=== PATIENT | female | born 1985 | race Two or more races ===

== ENCOUNTER 2023-08-03 03:51 | Emergency (ER) | payer MEDICAID ==
[2023-08-03 04:23] LABS: BASOPHILS # (AUTO) 0.1 10^3/uL (0.0-0.1); BASOPHILS % (AUTO) 0.5 %; EOSINOPHILS # (AUTO) 0.1 10^3/uL (0.0-0.7); EOSINOPHILS % (AUTO) 0.9 %; HCT - HEMATOCRIT 41.9 % (37.0-47.0); HGB - HEMOGLOBIN 13.8 g/dL (12.0-16.0); LYMPHOCYTES % (AUTO) 30.1 %; MEAN CORPUSCULAR HGB CONC 32.9 g/dL (32.0-36.0); MEAN PLATELET VOLUME 9.7 fL (7.9-10.8); MONOCYTES # (AUTO) 0.9 10^3/uL (0.0-1.0); MONOCYTES % (AUTO) 6.6 %; NEUTROPHILS # (AUTO) 8.2 10^3/uL (1.5-6.6); NEUTROPHILS % (AUTO) 61.1 %; PLT - PLATELET COUNT 332 10^3/uL (130-450); RED BLOOD COUNT 4.76 10^6/uL (4.20-5.40); RED CELL DISTRIBUTION WIDTH 14.3 % (12.0-15.0); WHITE BLOOD COUNT 13.4 x10^3/uL (4.8-10.8)
[2023-08-03 04:27] LABS: BILIRUBIN,URINE NEGATIVE (NEGATIVE); GLUCOSE, URINE (UA) NEGATIVE (NEGATIVE); KETONES,URINE (UA) NEGATIVE (NEGATIVE); LEUKOCYTE ESTERASE, URINE NEGATIVE (NEGATIVE); NITRITE,URINE NEGATIVE (NEGATIVE); OCCULT BLOOD,URINE TRACE-INTA (NEGATIVE); PH,URINE 6.5 PH (5.0-7.5); PROTEIN,URINE NEGATIVE (NEGATIVE); UROBILINOGEN,URINE 0.2 (NORMAL) E.U./dL (NORMAL)
[2023-08-03 04:34] LABS: CLARITY,URINE CLEAR (CLEAR)
[2023-08-03] MEDS ORDERED: KETOROLAC 15 MG/ML VIAL IVP STA ×2 (04:45→07:10)
[2023-08-03] MEDS ORDERED: SODIUM CHLORIDE 0.9% 1,000 ML IV STA ×2 (04:45→07:10)
[2023-08-03] MEDS ORDERED: ONDANSETRON 4 MG/2 ML VIAL IVP STA (04:46)
[2023-08-03] MEDS ORDERED: ONDANSETRON 4 MG/2 ML VIAL ONE (05:01)
--- NOTE | 2023-08-03 05:10 | ED Physician Documentation ---
History of Present Illness - Stated complaint Stated Complaint: ABD PX - Chief complaint Chief Complaint: Abd Pain - History obtained from History obtained from: Patient - Additonal information Additional information: 37yF presents with sudden onset severe intermittent sharp LLQ and LUQ pain since last night with sensation of difficulty voiding and suprapubic fullness as well as nausea. denies fever, diarrhea. + constipation Review of Systems Constitutional: denies: Fever Cardiac: denies: Chest pain / pressure Respiratory: denies: Dyspnea GI: reports: Abdominal Pain, Nausea, Constipation. denies: Diarrhea, Bloody / black stool : reports: Frequency, Unable to Void. denies: Dysuria Musculoskeletal: denies: Back pain PD PAST MEDICAL HISTORY - Past Medical History Past Medical History: No - Past Surgical History Past Surgical History: Yes General: Cholecystectomy - Present Medications Home Medications: Ambulatory Orders Medication Instructions Recorded Confirmed HYDROcod/ACETAM 5/325 [Ucon 5/325] 1 ea PO Q6H PRN #15 tablet 08/03/23 Ketorolac [Toradol] 10 mg PO Q6H PRN #20 tablet 08/03/23 Ondansetron Odt [Zofran Odt] 4 mg TL Q6H PRN #10 tablet 08/03/23 Tamsulosin [Flomax] 0.4 mg PO DAILY 14 Days #14 tab 08/03/23 - Allergies Allergies/Adverse Reactions: Allergies Allergy/AdvReac Type Severity Reaction Status Date / Time No Known Drug Allergies Allergy Verified 08/03/23 04:13 - Social History Does the pt smoke?: No Smoking Status: Never smoker Does the pt drink ETOH?: No Does the pt have substance abuse?: No Substance Use and Type: Other - Immunizations Immunizations are current?: Yes - POLST Patient has POLST: No PD ED PE NORMAL - Vitals Vital signs reviewed: Yes - General General: Alert and oriented X 3, No acute distress, Well developed/nourished - HEENT HEENT: Atraumatic, PERRL, EOMI - Neck Neck: Supple, no meningeal sign - Cardiac Cardiac: RRR - Respiratory Respiratory: No respiratory distress, Clear bilaterally - Abdomen Abdomen: Non tender, Non distended, Other (Discomfort in left lower quadrant) - Back Back: No CVA TTP - Derm Derm: Normal color, Warm and dry - Extremities Extremities: No deformity - Neuro Neuro: Alert and oriented X 3 - Psych Psych: Normal mood, Normal affect Results - Vitals Vitals: Oxygen O2 Source Room air - Labs Labs: Laboratory Tests 08/03/23 08/03/23 08/03/23 04:02 04:10 04:10 WBC 13.4 H RBC 4.76 Hgb 13.8 Hct 41.9 MCV 88.0 MCH 29.0 MCHC 32.9 RDW 14.3 Plt Count 332 MPV 9.7 Neut # (Auto) 8.2 H Lymph # (Auto) 4.0 H [place] # (Auto) 0.9 Eos # (Auto) 0.1 Baso # (Auto) 0.1 Absolute Nucleated RBC 0.00 Nucleated RBC % 0.0 Sodium 137 Potassium 4.0 Chloride 103 Carbon Dioxide 25 Anion Gap 9.0 BUN 10 Creatinine 0.9 Estimated GFR (MDRD) 71 L Glucose 134 H Calcium 9.4 Total Bilirubin 0.4 AST 52 H ALT 88 H Alkaline Phosphatase 104 Total Protein 7.9 Albumin 4.2 Globulin 3.7 Albumin/Globulin Ratio 1.1 Lipase < 10 L Urine Color YELLOW Urine Clarity CLEAR Urine pH 6.5 Ur Specific [place] 1.020 Urine Protein NEGATIVE Urine Glucose (UA) NEGATIVE Urine Ketones NEGATIVE Urine Occult Blood TRACE-INTA Urine Nitrite NEGATIVE Urine Bilirubin NEGATIVE Urine Urobilinogen 0.2 (NORMAL) Ur Leukocyte Esterase NEGATIVE Ur Microscopic Review NOT INDICATED Urine Culture Comments NOT INDICATED Urine HCG, Qual 08/03/23 05:33 WBC RBC Hgb Hct MCV MCH MCHC RDW Plt Count MPV Neut # (Auto) Lymph # (Auto) [place] # (Auto) Eos # (Auto) Baso # (Auto) Absolute Nucleated RBC Nucleated RBC % Sodium Potassium Chloride Carbon Dioxide Anion Gap BUN Creatinine Estimated GFR (MDRD) Glucose Calcium Total Bilirubin AST ALT Alkaline Phosphatase Total Protein Albumin Globulin Albumin/Globulin Ratio Lipase Urine Color Urine Clarity Urine pH Ur Specific [place] Urine Protein Urine Glucose (UA) Urine Ketones Urine Occult Blood Urine Nitrite Urine Bilirubin Urine Urobilinogen Ur Leukocyte Esterase Ur Microscopic Review Urine Culture Comments Urine HCG, Qual NEGATIVE PD Medical Decision Making - ED course ED course: 37yF presents with LUQ/LLQ pain since last night with associated nausea. cbc,abdominal panel, u/a, hcg ordered along with CTAP. concern for kidney stones , gastroenteritis, vs ovarian torsion vs ectopic. IV toradol and zofran given with improvement in pain and nausea. Small stone viewed at [facility]. patient with recurrent pain therefore 2nd liter ivf and 2nd dose toradol ordered. rx sent to [facility]. plan to f/u urology. return precautions given. Departure - Departure Disposition: Home, Self Care Clinical Impression: Abdominal pain, Nausea Condition: Stable Instructions: Kidney Stones Follow-Up: Kathi Harper MD [Physician No Access] - Prescriptions: Tamsulosin [Flomax] 0.4 mg PO DAILY 14 Days #14 tab HYDROcod/ACETAM 5/325 [Ucon 5/325] 1 ea PO Q6H PRN #15 tablet PRN Reason: Pain Ketorolac [Toradol] 10 mg PO Q6H PRN #20 tablet PRN Reason: Pain Ondansetron Odt [Zofran Odt] 4 mg TL Q6H PRN #10 tablet PRN Reason: Nausea / Vomiting Comments: You were seen in the emergency department for Kidney stones. Prescription sent electronically to [facility]. Please follow-up with outpatient urology (referral provided) and return to the emergency department if you have any new or worsening symptoms or other concerns. Forms: PCP List Discharge Date/Time: 08/03/23 10:41
[2023-08-03 05:21] LABS: ALBUMIN 4.2 g/dL (3.2-5.5); ALBUMIN/GLOBULIN RATIO 1.1 (1.0-2.2); ALKALINE PHOSPHATASE 104 IU/L (42-121); ALT ALANINE AMINOTRANSFERASE 88 IU/L (10-60); AST ASPARTATE AMINOTRANSFERASE 52 IU/L (10-42); BILIRUBIN,TOTAL 0.4 mg/dL (0.2-1.0); BUN - BLOOD UREA NITROGEN 10 mg/dL (6-20); CALCIUM 9.4 mg/dL (8.5-10.3); CARBON DIOXIDE - CO2 25 mmol/L (21-32); CHLORIDE 103 mmol/L (101-111); CREATININE 0.9 mg/dL (0.6-1.3); GFR - MDRD 71 (>89); GLUCOSE 134 mg/dL (74-104); SODIUM 137 mmol/L (135-145); TOTAL PROTEIN 7.9 g/dL (6.4-8.9)
[2023-08-03 05:47] LABS: LIPASE < 10 U/L (11-82)
[2023-08-03 06:20] LABS: HCG UR QUAL NEGATIVE
[2023-08-03] MEDS ORDERED: HYDROmorphone 1 MG/ML CARPUJECT IVP STA (10:24)
[2023-08-03] MEDS ORDERED: TAMSULOSIN 0.4 MG CAPSULE PO STA (10:25)
--- NOTE | 2023-08-03 10:27 | ED Physician Documentation ---
ED Addendum - Addendum Addendum: 08/03/23 10:25 Upon change of shift the patient was getting more pain medicine. A preliminary CT had shown a less than 2 mm stone in the left distal ureter. Mild hydro-. We were waiting to see if she was getting more relief from a repeat dose of Toradol. Due to other patients in the department I did not get back to her right away. She did rest for a little bit but states her pain is still there. We will add another dose of pain medicine to be hydromorphone this time along with a dose of Flomax. The patient states she would like to be going after that. I will send prescriptions for her pain medicine as well as antiemetic and anti-inflammatory to her preferred pharmacy, [facility]. We did discuss the typical course for kidney stones of this size and hopefully she will pass it today or tomorrow. Diagnoses: Left abdominal pain 2. Ureterolithiasis with hydronephrosis Disposition: The patient discharged home in stable condition.
[2023-08-03 10:41] VITALS: BP 152/84; O2SAT 95
--- NOTE | 2023-08-03 10:51 | CT Report ---
PROCEDURE: ABDOMEN/PELVIS WO INDICATIONS: LLQ pain TECHNIQUE: A CT scan of the abdomen and pelvis was performed without the use of intravenous contrast. Images we re recorded and evaluated at appropriate window settings. Reformats: coronal and sagittal. For radiat ion dose reduction, the following was used: automated exposure control, adjustment of mA and/or kV ac cording to patient size. COMPARISON: None. FINDINGS: Image quality: Excellent. Lung bases and heart: Unremarkable. Liver: No solid mass. Gallbladder and biliary tree: Surgically absent. No biliary dilation, accounting for post-cholecystec johnathon state. Spleen: No splenomegaly. Pancreas: No pancreatic ductal dilation. Adrenals: No adrenal nodule. Kidneys and ureters: No renal stones, ureteral stones, or hydronephrosis. Minimal prominence of the l eft collecting system and left ureter. 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 Bowel and peritoneum: No bowel distension. No pathologic free fluid. Lymph nodes: No central or retroperitoneal adenopathy. Vessels: No infrarenal aortic aneurysm. PELVIS Reproductive organs: Unremarkable. Bladder: There is either passage of a 2 mm stone from the left ureter into the bladder, or the 2 mm s tone is about to pass completely into the bladder. Reference image 87/2. Pelvic lymph nodes: No pelvic adenopathy by size criteria. Bones: No aggressive osseous abnormality. Other: No significant ventral or inguinal hernia. IMPRESSION: Recent passage of a 2 mm stone from the left ureter into the left base of bladder versus 2 mm stone a bout to completely pass into the bladder. Minimal residual prominence of the left collecting system a nd left ureter. Findings are concordant with preliminary interpretation provided by [facility]. Reviewed by: Chris Hunter MD on 08/03/2023 10:50 AM PDT Approved by: Chris Hunter MD on 08/03/2023 10:50 AM PDT Station ID: [id number]
== END 2023-08-03 10:41 | disposition home or self-care (01) ==
LOC: ED 03:51
DX: N13.2 Hydronephrosis with renal and ureteral calculous obstruction (principal); R11.0 Nausea
CPT/HCPCS: 36415; 74176; 80053; 81003; 81025; 83690; 85025; 96374; 96375; 96376; 99284; A9270; J1170; 81001; 87086